=== PATIENT | female | born 1970 | race Caucasian/White ===

== ENCOUNTER 2016-07-04 16:39 | Emergency (ER) | payer OTHER ==
[2016-07-04 17:36] VITALS: RESP 18
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
[2016-07-04 19:28] VITALS: BP 122/78; PULSE 88; TEMP 98.6
== END 2016-07-04 19:28 | disposition home or self-care (01) ==
LOC: EC 16:39
DX: F14.10 Cocaine abuse, uncomplicated (principal); R11.2 Nausea with vomiting, unspecified; F17.200 Nicotine dependence, unspecified, uncomplicated; Z88.0 Allergy status to penicillin; Z88.2 Allergy status to sulfonamides; Z91.018 Allergy to other foods
CPT/HCPCS: 72050; 80306; 81025; 99283

== ENCOUNTER → 2016-07-04 | Outpatient (CLI) | payer OTHER ==
--- NOTE | 2016-07-04 17:54 | XR ---
EXAMINATION TYPE: XR cervical spine comp DATE OF EXAM: 07/04/2016 5:33 PM COMPARISON: NONE HISTORY: Neck pain TECHNIQUE: 5 views FINDINGS: Vertebra have normal alignment. Disc spaces are fairly normal. There is a large anterior sp ur at C5-6. Posterior elements are intact. Atlantoaxial facet joint is normal. There are no cervical ribs. Neural foramina are widely patent. IMPRESSION: Anterior spurring at C5-6. No fracture. No significant disc space narrowing.
== END | disposition home or self-care (01) ==
LOC: RADXRMAIN 17:01
PROVIDERS: ATTEND Physician Assistant Medical
DX: M46.02 Spinal enthesopathy, cervical region (principal)
CPT/HCPCS: 72050

== ENCOUNTER 2018-06-18 15:58 | Emergency (ER) | payer OTHER ==
[2018-06-18] MEDS ORDERED: ASPIRIN 81 MG PO STA (16:41)
[2018-06-18 16:55] LABS: Basophils % (A) 1 %; Eosinophils # (A) 0.1 k/uL (0-0.7); Eosinophils % (A) 3 %; HCT 43.9 % (34.0-46.0); HGB 14.3 gm/dL (11.4-16.0); Lymphocytes # (A) 1.1 k/uL (1.0-4.8); Lymphocytes % (A) 33 %; MCH 30.2 pg (25.0-35.0); MCHC 32.6 g/dL (31.0-37.0); MCV 92.6 fL (80.0-100.0); Mean Platelet Volume 6.7; Monocytes # (A) 0.2 k/uL (0-1.0); Monocytes % (A) 5 %; Neutrophils # (A) 1.9 k/uL (1.3-7.7); Neutrophils % (A) 56 %; Platelet Count 274 k/uL (150-450); RBC 4.74 m/uL (3.80-5.40); RDW 13.5 % (11.5-15.5); WBC 3.5 k/uL (3.8-10.6)
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
[2018-06-18 17:04] LABS: ALT 22 U/L (9-52); AST 25 U/L (14-36); Albumin 4.1 g/dL (3.5-5.0); Alkaline Phosphatase 60 U/L (38-126); Anion Gap 8 mmol/L; Blood Urea Nitrogen 10 mg/dL (7-17); Calcium 9.6 mg/dL (8.4-10.2); Carbon Dioxide 22 mmol/L (22-30); Chloride 109 mmol/L (98-107); Glucose 99 mg/dL (74-99); Magnesium 2.2 mg/dL (1.6-2.3); Sodium 139 mmol/L (137-145); Total Bilirubin 0.6 mg/dL (0.2-1.3); Total Protein 6.9 g/dL (6.3-8.2)
[2018-06-18 17:10] LABS: INR 0.9 (<1.2); Partial Thromboplastin Time 25.3 sec (22.0-30.0); Prothrombin Time 10.2 sec (9.0-12.0)
[2018-06-18 17:14] LABS: Creatine Kinase 38 U/L (30-135)
[2018-06-18 17:16] LABS: Potassium 4.6 mmol/L (3.5-5.1)
[2018-06-18 17:26] LABS: Creatine Kinase MB 0.3 ng/mL (0.0-2.4); Troponin I <0.012 ng/mL (0.000-0.034)
[2018-06-18 17:29] LABS: D-Dimer 1.75 mg/L FEU (<0.60)
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
--- NOTE | 2018-06-18 17:33 | XR ---
EXAMINATION TYPE: XR chest 2V DATE OF EXAM: 06/18/2018 COMPARISON: 09/27/2013 HISTORY: Left-sided chest pain TECHNIQUE: Frontal and lateral views of the chest are obtained. FINDINGS: Heart and mediastinum are normal. Lungs are clear. Diaphragm is normal. Bony thorax appear s normal. There are chest leads. IMPRESSION: Normal chest. No change.
[2018-06-18 19:11] VITALS: RESP 18
--- NOTE | 2018-06-18 21:02 | NM ---
EXAMINATION TYPE: NM pul vent and perfuse DATE OF EXAM: 06/18/2018 COMPARISON: NONE HISTORY: TECHNIQUE: Utilizing inhalation of 38.5 mCi Tc 99m DTPA aerosol and intravenous injection of 5.29 mC i of Tc 99m MAA, ventilation and perfusion images are acquired post injection in multiple projections . FINDINGS: Ventilation exam is showing multiple defects consistent with airway disease. The perfusion images are fairly normal. There is no segmental or subsegmental-type perfusion defect. Impression there is evidence of airway disease. Low probability of pulmonary embolism.
[2018-06-18] MEDS ORDERED: HEPARIN SODIUM,PORCINE 5,000 UNIT/ML 1 ML VIAL IV ONE ×2 (21:09→21:13)
[2018-06-18] MEDS ORDERED: HEPARIN SODIUM,PORCINE 5,000 UNIT/ML 1 ML VIAL IV PRN (21:13)
[2018-06-18] MEDS ORDERED: HEPARIN SOD,PORK IN 0.45% NACL 25,000 UNIT in 0.45% NACL 1 250ML.BAG IV SCH (21:15)
[2018-06-18 22:12] VITALS: BP 117/62; PULSE 62; TEMP 98.2
== END 2018-06-18 22:09 | disposition left against medical advice (07) ==
LOC: EC 15:58
DX: R07.9 Chest pain, unspecified (principal); R51 Headache; R79.89 Other specified abnormal findings of blood chemistry; I25.2 Old myocardial infarction; F17.200 Nicotine dependence, unspecified, uncomplicated; Z95.5 Presence of coronary angioplasty implant and graft; Z87.09 Personal history of other diseases of the respiratory system; Z86.73 Personal history of transient ischemic attack (TIA), and cerebral infarction without residual deficits; Z91.041 Radiographic dye allergy status; Z88.0 Allergy status to penicillin; Z88.2 Allergy status to sulfonamides; Z91.018 Allergy to other foods; Z53.29 Procedure and treatment not carried out because of patient's decision for other reasons
CPT/HCPCS: 36415; 93005; 85379; 80053; 82550; 82553; 83735; 84484; 85025; 85610; 85730; 71046; 70450; 78582; 99285; A9540; A9567

== ENCOUNTER 2022-12-27 18:43 | Emergency (ER) | payer OTHER ==
[2022-12-27 19:11] VITALS: RESP 18
[2022-12-27] MEDS ORDERED: DEXAMETHASONE SOD PHOSPHATE 10 MG/ML 1 ML VIAL IM STA (19:40)
[2022-12-27] MEDS ORDERED: KETOROLAC 15 MG/ML 1 ML VIAL IM STA (19:40)
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
[2022-12-27] MEDS ORDERED: HYDROmorphone 1 MG/ML 1 ML SYRINGE IM STA (21:21)
--- NOTE | 2022-12-27 22:20 | CT ---
EXAMINATION TYPE: CT lumbar spine wo con DATE OF EXAM: 12/27/2022 10:09 PM COMPARISON: Lumbar spine x-ray on 12/27/2022. HISTORY: Pain after fall. Possible fracture on x-ray. CT DLP: 1251.6 mGycm Automated exposure control for dose reduction was used. Unenhanced CT of the lumbar spine was performed. Bone and soft tissue window settings are submitted as well as coronal and sagittal reconstructions. Findings: There is a mild levoconvex curvature of the upper lumbar spine. Impression deformity of the L2 verteb ral body is noted along its central aspect has a chronic appearance. No definitive acute fractures ar e seen. There is approximately 50% vertebral body height loss of the central vertebral body. The left aspect of the vertebral body height maintained. The disc spaces appear maintained. There is mild multilevel degenerative facet changes throughout the spine. IMPRESSION: 1. Chronic appearing compression deformity of the L2 vertebral body. 2. Mild degenerative changes with no definitive acute findings seen.
[2022-12-27] MEDS ORDERED: ACET/COD 300 MG/30 MG STARTER PACK 6 TAB BTL PO STA (22:50)
[2022-12-27 23:06] VITALS: BP 98/71; PULSE 70; TEMP 98.3
== END 2022-12-27 23:08 | disposition home or self-care (01) ==
LOC: EC 18:43
DX: S42.401A Unspecified fracture of lower end of right humerus, initial encounter for closed fracture (principal); S39.012A Strain of muscle, fascia and tendon of lower back, initial encounter; J45.909 Unspecified asthma, uncomplicated; I25.2 Old myocardial infarction; I10 Essential (primary) hypertension; F17.200 Nicotine dependence, unspecified, uncomplicated; Z86.59 Personal history of other mental and behavioral disorders; Z88.0 Allergy status to penicillin; Z88.1 Allergy status to other antibiotic agents; Z88.2 Allergy status to sulfonamides; W19.XXXA Unspecified fall, initial encounter
CPT/HCPCS: 72050; 72100; 73030; 73070; 72131; 99284; 29105; 96372 ×3; J1100; J1170; J1885